=== PATIENT | male | born 1985 | race Caucasian/White ===

== ENCOUNTER 2022-08-21 12:27 | Emergency (ER) | payer MEDICAID ==
[~2022-08-21] VITALS: Ht 180.3 cm; Wt 79.4 kg
--- NOTE | 2022-08-21 12:30 | NUR ---
TO ER BED 3, HE WAS EATING STACY SEEDS AT 0930 GOT STUCK IN HIS THROAT,NO DROOLING, AAOX3, BREATHING EVEN AND NON LABORED, AWAITING MD GALDAMEZ
--- NOTE | 2022-08-21 12:46 | NUR ---
DR IBARRA AT BEDSIDE FOR EVAL
[2022-08-21] MEDS ORDERED: MAG HYDROX/AL HYDROX/SIMETH 30 ML UDC ONE (12:52)
[2022-08-21] MEDS ORDERED: FAMOTIDINE (20 MG) 20 MG TABLET ONE (12:52)
[2022-08-21] MEDS ORDERED: LIDOCAINE VISCOUS 2% UD 15 ML UDC ONE (12:52)
[2022-08-21] MEDS ORDERED: PANT40TA2 PO (12:54)
[2022-08-21] MEDS ORDERED: FAMOTIDINE (20 MG) 20 MG TABLET PO ONE (13:00)
[2022-08-21] MEDS ORDERED: MAG HYDROX/AL HYDROX/SIMETH 30 ML UDC PO ONE (13:00)
[2022-08-21] MEDS ORDERED: LIDOCAINE VISCOUS 2% UD 15 ML UDC MM ONE (13:00)
--- NOTE | 2022-08-21 13:07 | NUR ---
Patient discharged to home in stable condition. Written and verbal after care instructions given. Patient verbalizes understanding of instruction.
[2022-08-21 13:08] VITALS: BP 133/93
== END 2022-08-21 13:08 | disposition home or self-care (01) ==
LOC: ER 12:27
DX: R09.89 Other specified symptoms and signs involving the circulatory and respiratory systems (principal)